=== PATIENT | female | born 1940 ===

== ENCOUNTER 2018-03-05 01:19 | Inpatient (IN) ==
[2018-03-05] MEDS ORDERED: ONDANSETRON 4 MG/2 ML VIAL IV PRN (05:02)
[2018-03-05] MEDS ORDERED: ACETAMINOPHEN 325 MG TABLET PO PRN (05:02)
[2018-03-05] MEDS ORDERED: MORPHINE 4 MG/1 ML VIAL IV PRN (05:02)
[2018-03-05 06:12] LABS: Apearance,Urine CLEAR (Clear); Bilirubin,Urine Negative (Negative); Blood, Urine Small mg/dL (Negative); Glucose,Urine (UA) Negative (Negative); Ketones,Urine Negative (Negative); Nitrite,Urine Negative (Negative); Protein,Urine 100 MG/DL; RBC,Urine 1 /HPF (0-4); Urine Color Colorless (Yellow); Urine Specific Gravity 1.003 (1.001-1.035); Urine Urobilinogen < 2.0 EU/DL (0.2-1.0); WBC,Urine 26 /HPF (0-6)
[2018-03-05] MEDS: SODIUM CHLORIDE 0.9% 1,000 ML IV SCH (07:16)
[2018-03-05] MEDS ORDERED: LORazepam 2 MG/1 ML VIAL IV SCH (08:44)
[2018-03-05 09:33] LABS: Basophils # 0.1 10*3/uL (0.0-0.2); Basophils % 0.8 % (0.0-0.8); Eosinophils % 0.6 % (0.00-10.9); Hematocrit 32.5 VOL% (35.7-47.0); Hemoglobin 10.8 GM/DL (12.0-16.0); Immature Granulocytes % 0.3 %; Immature Granulocytes Absolute 0.02 #; Lymphocytes # 1.9 10*3/uL (1.4-4.0); Lymphocytes % 30.3 % (21.3-54.2); Mean Corpuscular HGB Conc 33.2 GM/DL (32-36); Mean Corpuscular Hemoglobin 30 PG (27-34); Mean Corpuscular Volume 89.3 FL (87-102); Mean Platelet Volume 11.8 FL (9.6-12.0); Monocytes # 0.4 10*3/uL (0.11-0.8); Monocytes % 6.4 % (1.7-12.7); Neutrophils # 3.9 10*3/uL (1.4-7.4); Neutrophils % 61.6 % (38.7-73.9); Platelet Count 167 T/CUMM (130-400); Red Blood Count 3.64 MC/CUMM (3.8-5.5); White Blood Count 6.3 T/CUMM (4-12)
[2018-03-05 09:54] LABS: Lactic Acid 1.4 MMOL/L (0.4-2.0)
[2018-03-05 10:07] LABS: Risk Ratio 1.64
[2018-03-05 10:13] LABS: Albumin 3.2 G/DL (3.4-5.0); Bilirubin,Total 0.5 MG/DL (0.2-1.0); Calcium 8.8 MG/DL (8.5-10.1); Osmolality,Calculated 287.8 MOS/KG (273-304); Potassium 3.3 MMOL/L (3.5-5.1); Thyroid Stimulating Hormone 2.15 uIU/ml (0.358-3.74); Total Protein 7.9 G/DL (6.4-8.3)
[2018-03-05 11:43] LABS: Barbiturates Screen,Urine Negative (Negative); Benzodiazepines Screen,Urine Negative (Negative); Cannabinoid Screen,Urine Negative (Negative); Opiate Screen,Urine Negative (Negative); Phencyclidine Screen,Urine Negative (Negative)
[2018-03-05] MEDS ORDERED: LORazepam 2 MG/1 ML VIAL IV ONE (15:00)
[2018-03-05] MEDS ORDERED: cefTRIAXone 1,000 MG in SYRINGE 1 EACH IV SCH (17:00)
[2018-03-05] MEDS ORDERED: LORazepam 2 MG/1 ML VIAL IV PRN (20:00)
[2018-03-05] MEDS: ASPIRIN CHEW 81 MG TABLET PO SCH (22:33)
[2018-03-05] MEDS: SIMVASTATIN 20 MG TABLET PO SCH (22:34)
[2018-03-05] MEDS: LEVOTHYROXINE 100 MCG TABLET PO SCH (22:34)
[2018-03-05] MEDS: amLODIPine 5 MG TABLET PO SCH (22:34)
[2018-03-05] MEDS: METOPROLOL SUCCINATE XL 50 MG TABLET PO SCH (22:34)
[2018-03-06] MEDS: SODIUM CHLORIDE 0.9% 1,000 ML IV SCH (00:55)
[2018-03-06] MEDS: FLUCONAZOLE 150 MG TABLET PO ONE ×2 (05:29→09:52)
[2018-03-06 09:09] LABS: Basophils # 0.1 10*3/uL (0.0-0.2); Eosinophils # 0.1 10*3/uL (0.0-0.87); Hematocrit 29.1 VOL% (35.7-47.0); Hemoglobin 9.2 GM/DL (12.0-16.0); Immature Granulocytes % 0.2 %; Immature Granulocytes Absolute 0.01 #; Lymphocytes # 1.6 10*3/uL (1.4-4.0); Lymphocytes % 32.7 % (21.3-54.2); Mean Corpuscular HGB Conc 31.6 GM/DL (32-36); Mean Corpuscular Hemoglobin 29 PG (27-34); Mean Corpuscular Volume 92.7 FL (87-102); Mean Platelet Volume 11.6 FL (9.6-12.0); Monocytes # 0.4 10*3/uL (0.11-0.8); Monocytes % 8.3 % (1.7-12.7); Neutrophils # 2.8 10*3/uL (1.4-7.4); Neutrophils % 55.8 % (38.7-73.9); Platelet Count 136 T/CUMM (130-400); Red Blood Count 3.14 MC/CUMM (3.8-5.5); Red Cell Distribution Width 13.5 % (9.3-17.3)
[2018-03-06 09:35] LABS: Calcium 8.2 MG/DL (8.5-10.1); Osmolality,Calculated 295.3 MOS/KG (273-304); Potassium 3.3 MMOL/L (3.5-5.1)
[2018-03-06] MEDS: SIMVASTATIN 20 MG TABLET PO SCH (09:51)
[2018-03-06] MEDS: amLODIPine 5 MG TABLET PO SCH (09:51)
[2018-03-06] MEDS: LEVOTHYROXINE 100 MCG TABLET PO SCH (09:51)
[2018-03-06] MEDS: ASPIRIN CHEW 81 MG TABLET PO SCH (09:52)
[2018-03-06] MEDS: METOPROLOL SUCCINATE XL 50 MG TABLET PO SCH (09:52)
[2018-03-06] MEDS ORDERED: POTASSIUM CHLORIDE 20 MEQ TABLET PO ONE (14:10)
[2018-03-06 15:54] VITALS: BP 153/59
== END 2018-03-06 17:59 | disposition home health service (06) | DRG 690 ==
LOC: N.2E 03:21 → SUATTDRO 03:21
PROVIDERS: ADMIT Internal Medicine; ATTEND Internal Medicine